=== PATIENT | male | born 1970 | race Caucasian/White ===

== ENCOUNTER 2021-12-07 12:12 | Outpatient (CLI) | payer OTHER, SELFPAY ==
--- NOTE | 2021-12-07 08:40 | COLBX_PTH ---
PATIENT: MG DILLAN BLUNT LOC: [facility] U#:[id number] AGE/SX: 51/M ROOM: RE12/07/[address]: Dr. Homer Arreguin MD : [id number] BED: DIS: 12/07/2021 SPEC #: [id number] RECD: 12/07/21 12:00 STATUS: LEXIS SHIREEN #: [id number] JUWAN: 12/07/21 08:[address]: Homer Arreguin DEPT: SURGICAL PATHOLOGY RECD BY: Keke Burnett ENTERED: 12/08/21 09:25 SP TYPE: COLON BX OTHR DR: Dr. Bryce Moon MD Tissues: Rectum, NOS Procedures: Surgery Specimen Level IV HEADER OPERATION: Colonoscopy PRE-OP DIAGNOSIS: Screening TISSUE SUBMITTED: Rectal polyp MICROSCOPIC DIAGNOSIS Rectal polyp, biopsy: Cauterized tubular adenoma. AM:modesta 12/08/2021 MICROSCOPIC DESCRIPTION Slides are reviewed. GROSS DESCRIPTION Received in fixative is one container labeled with the patient's name and designated rectal polyp. The specimen consists of a piece of prasad-pink polyp measuring 0.6 x 0.5 x 0.2 cm. The entire specimen is submitted in one cassette. / SJ:modesta 12/07/2021 TC:5 CPT: 48761
== END 2021-12-07 23:59 | disposition short-term general hospital (02) ==
LOC: LABSPEC 12:17
PROVIDERS: PCP Family Medicine; Visit Provider Surgery
DX: Z12.11 Encounter for screening for malignant neoplasm of colon (principal); K62.1 Rectal polyp
CPT/HCPCS: 88305

== ENCOUNTER → 2024-01-05 | Outpatient (CLI) | payer OTHER, SELFPAY | END | disposition home or self-care (01) | LOC: SL 20:10 | PROVIDERS: PCP Family Medicine; Visit Provider Nurse Practitioner Family | DX: G47.33 Obstructive sleep apnea (adult) (pediatric) (principal) | CPT/HCPCS: 95811 ==